=== PATIENT | male | born 1960 | race Caucasian/White ===

== ENCOUNTER → 2019-03-13 | Outpatient (CLI) | payer OTHER | LOC: CAT 11:26 | DX: Z13.6 Encounter for screening for cardiovascular disorders (principal); E78.00 Pure hypercholesterolemia, unspecified; I25.10 Atherosclerotic heart disease of native coronary artery without angina pectoris ==

== ENCOUNTER → 2020-02-11 | Outpatient (CLI) | payer BC | LOC: SJCVCIMAG 09:41 | DX: E78.5 Hyperlipidemia, unspecified (principal); Z87.891 Personal history of nicotine dependence ==